=== PATIENT | male | born 1955 | race Caucasian/White ===

== ENCOUNTER → 2020-09-25 15:12 | Outpatient (CLI) | payer OTHER, SELFPAY ==
[2015-02-11 10:45] VITALS: BMI 28.1
--- NOTE | 2020-09-25 11:35 | COLBX_PTH ---
PATIENT: ARTI CHATMAN LOC: [facility] U#:[id number] AGE/SX: 69/M ROOM: RE09/25/[address]: Dr. Myles Hernandez MD : [id number] BED: DIS: SPEC #: [id number] RECD: 09/25/20 14:56 STATUS: WILY GRAJEDA #: [id number] HORACE: 09/25/20 11:[address]: Myles Hernandez DEPT: SURGICAL PATHOLOGY RECD BY: Michelle Barker ENTERED: 09/26/20 07:12 SP TYPE: COLON BX OTHR DR: Dr. Frederick Cardenas MD [facility] Tissues: Colon, NOS Procedures: Surgery Specimen Level IV HEADER OPERATION: Colonoscopy PRE-OP DIAGNOSIS: High risk screening colon TISSUE SUBMITTED: Right colon MICROSCOPIC DIAGNOSIS Right colon, biopsy: Fragments of tubular adenoma. VIKY:nina 09/27/2020 MICROSCOPIC DESCRIPTION Slides are reviewed. GROSS DESCRIPTION Received in fixative is one container labeled with the patient's name and designated right colon. The specimen consists of multiple irregular fragments of light ho soft tissue that in aggregate measure 1 x 0.5 x 0.1 cm. The specimen is totally submitted in one cassette. / SJ:nina 09/26/20 TC:1 CPT: 68977
== END ==
PROVIDERS: PCP Internal Medicine; Referring Provider Internal Medicine Gastroenterology; Visit Provider Internal Medicine Gastroenterology
DX: Z12.11 Encounter for screening for malignant neoplasm of colon (principal); D12.2 Benign neoplasm of ascending colon
CPT/HCPCS: 88305